=== PATIENT | female | born 1960 | race Caucasian/White ===

== ENCOUNTER 2018-08-23 03:35 | Emergency (ER) | payer MEDICAID, MEDICARE ==
[~2018-08-23] VITALS: Ht 167.6 cm; Wt 65.0 kg
[2018-08-23 03:52] VITALS: BP 116/87
[2018-08-23] MEDS ORDERED: ONDANSETRON HCL 4MG/2ML INJ IV STA (06:25)
[2018-08-23] MEDS ORDERED: MORPHINE SULFATE 4 MG/ML CPJ (NOT FOR IM USE) IV STA (06:25)
[2018-08-23] MEDS ORDERED: NITROGLYCERIN OINT 1GM/INCH UDPKT TD ONE (06:30)
[2018-08-23] MEDS ORDERED: ASPIRIN 81MG TABLET PO ONE (06:30)
== END 2018-08-23 06:27 | disposition left against medical advice (07) ==
LOC: ER 03:35
DX: R07.89 Other chest pain (principal); R51 Headache; C50.919 Malignant neoplasm of unspecified site of unspecified female breast; Z90.13 Acquired absence of bilateral breasts and nipples
CPT/HCPCS: 93005; 99283

== ENCOUNTER 2018-08-25 15:01 | Emergency (ER) | payer MEDICARE, MEDICAID ==
[~2018-08-25] VITALS: Ht 165.1 cm; Wt 65.0 kg
[2018-08-25 15:50] VITALS: BP 158/81
[2018-08-25 16:51] LABS: BASOPHILS % 0.4 % (0.0-2.0); EOSINOPHILS % 0.5 % (0.0-5.0); HEMATOCRIT. 43.6 % (36.0-48.0); HEMOGLOBIN. 14.8 g/dL (12.0-16.0); LYMPHOCYTES % 28.7 % (20.0-50.0); MEAN CORPUSCULAR HEMOGLOBIN 32.8 pg (28.0-32.0); MEAN CORPUSCULAR VOLUME 96.5 fL (81.0-99.0); MEAN PLATELET VOLUME 7.4 fl (7.4-10.4); MONOCYTES % 5.5 % (2.0-8.0); NEUTROPHILS % 64.9 % (40.0-76.0); PLATELET 328 x1000/uL (130-400); RED BLOOD CELL COUNT 4.52 mill/uL (4.2-5.4); RED CELL DISTRIBUTION WIDTH 13.1 % (11.6-14.6)
[2018-08-25 16:52] LABS: CHLORIDE 110 mEq/L (98-107)
[2018-08-25 16:56] LABS: ETHANOL BLOOD < 10 mg/dL; PARTIAL THROMBOPLASTIN TIME 29.4 sec (23.4-31.0); PROTHROMBIN TIME 10.6 sec (9.6-11.0)
== END 2018-08-25 17:40 | disposition left against medical advice (07) ==
LOC: ER 15:01
DX: R07.89 Other chest pain (principal); M79.7 Fibromyalgia
CPT/HCPCS: 36415; 80320; 83880; 84484; 99283; 99284; G0480

== ENCOUNTER 2018-08-25 22:45 | Emergency (ER) | payer MEDICARE, MEDICAID ==
[~2018-08-25] VITALS: Ht 157.5 cm; Wt 64.0 kg
[2018-08-26 00:39] VITALS: BP 146/92
== END 2018-08-26 00:39 | disposition home or self-care (01) ==
LOC: ER 22:45
DX: R51 Headache (principal); Z90.13 Acquired absence of bilateral breasts and nipples
CPT/HCPCS: 99282

== ENCOUNTER 2023-05-03 13:26 | Emergency (ER) | payer MEDICARE, MEDICAID ==
[~2023-05-03] VITALS: Ht 160 cm; Wt 66.0 kg
[2023-05-03 13:38] VITALS: O2SAT 98
[2023-05-03] MEDS: IBUPROFEN 600MG TABLET PO NR (14:55)
[2023-05-03] MEDS ORDERED: IBUPROFEN 600MG TABLET PO STA (14:55)
[2023-05-03] MEDS ORDERED: IBUP-2029 MT (16:17)
[2023-05-03 16:32] VITALS: BP 121/74; PULSE 78; RESP 16; TEMP 98.4
== END 2023-05-03 16:53 | disposition home or self-care (01) ==
LOC: ER 13:26
DX: S22.32XA Fracture of one rib, left side, initial encounter for closed fracture (principal); S09.90XA Unspecified injury of head, initial encounter; Z98.890 Other specified postprocedural states; Z98.51 Tubal ligation status; Y04.0XXA Assault by unarmed brawl or fight, initial encounter; Y93.89 Activity, other specified; Y92.89 Other specified places as the place of occurrence of the external cause; Y99.8 Other external cause status
CPT/HCPCS: 70486; 71045; 72100; 99284